=== PATIENT | female | born 1960 | race African-American/Black ===

== ENCOUNTER 2019-08-31 16:15 | Emergency (ER) | payer SELFPAY ==
--- NOTE | 2019-08-31 17:02 | ER Document Report ---
HPI - HPI Patient complains to provider of: HEADACHE Time Seen by Provider: 08/31/19 16:53 Onset: Last week Onset/Duration: Persistent Quality of pain: Achy Pain Level: 2 Context: 58-year-old female presents emergency department with reports that last Sunday () she fell at [facility] in [place]. She reports she fell in the parking lot hitting her head and blacking out and laceration to her left eyebrow. She was treated there with sutures. She reports they did not do a CT scan. She was instructed to follow-up with her primary care provider. She report s she attempted to get an appointment with her primary care provider but she was told to come here for CT scan. Patient has followed up with a chiropractor and they have placed a soft cervical collar on Sunday. Patient reports her head is still hurting she has a severe headache. She was able to drive herself here. She reports her ear hurt. Denies fever vomiting diarrhea. Associated Symptoms: Headache Exacerbated by: Denies Relieved by: Denies Similar symptoms previously: Yes Recently seen / treated by doctor: Yes - NEURO Neurology: REPORTS: Headache - REPRODUCTIVE Reproductive: DENIES: : Past Medical History - General Information source: Patient - Social History Smoking Status: Former Smoker Cigarette use (# per day): No Chew tobacco use (# tins/day): No Frequency of alcohol use: None Drug Abuse: None Lives with: Family Family History: Reviewed & Not Pertinent Patient has homicidal ideation: No - Past Medical History Cardiac Medical History: Reports: Hx Hypertension Pulmonary Medical History: Reports: Hx Pneumonia Endocrine Medical History: Reports: Hx Hypothyroidism Past Surgical History: Reports: Hx Cholecystectomy, Hx Thyroid Surgery - thyroidectomy - Immunizations Immunizations up to date: Yes Hx Diphtheria, Pertussis, Tetanus Vaccination: Yes Vertical Provider Document - CONSTITUTIONAL Agree With Documented VS: Yes Exam Limitations: No Limitations General Appearance: WD/WN, No Apparent Distress - INFECTION CONTROL TRAVEL OUTSIDE OF THE [place] IN LAST 30 DAYS: No - HEENT HEENT: Atraumatic, Normocephalic, PERRLA. negative: Conjuctival Injection - SUTURES INTACT LEFT EYEBROW, SITE BENIGN - NECK Neck: Normal Inspection - She has soft cervical collar on - RESPIRATORY Respiratory: No Respiratory Distress - CARDIOVASCULAR Cardiovascular: Regular Rate - MUSCULOSKELETAL/EXTREMETIES Musculoskeletal/Extremeties: BHARGAV AMADOR - NEURO Level of Consciousness: Awake, Alert, Appropriate Motor/Sensory: No Motor Deficit - DERM Integumentary: Warm, Dry, Laceration - Sutures intact to the left eyebrow site benign no erythema no swelling no warmth Course - Re-evaluation Re-evalutation: 08/31/19 17:15 58-year-old female with head injury after she fell and hit her head out in the parking lot, was knocked out, at [facility]. She reports they placed sutures in her left eyebrow but did not do a CT scan. She is waiting to follow- up with primary care provider was told to come here for CT scan because she continues to have severe headache. Did show me her discharge instructions which note that she should go to her primary care provider to have her sutures removed in 7 to 10 days. This is the eighth day post accident. Her suture site looks benign suture still intact. We will take the sutures out today. 08/31/19 17:[address] on negative [address] She wants to know why her right ear is still hurting. No erythema noted. Patient was instructed to follow-up with her primary care take Tylenol Motrin as indicated for the pain. She verbalized understanding. Head CT 08/31/19 16:59 IMPRESSION: NORMAL BRAIN CT WITHOUT CONTRAST. EVIDENCE OF ACUTE STROKE: NO. - Vital Signs Vital signs: Temp Pulse Resp BP Pulse Ox 97.7 F 88 16 128/72 H 97 08/31/19 16:45 08/31/19 16:20 08/31/19 16:20 08/31/19 16:20 08/31/19 16:20 - Diagnostic Test Radiology reviewed: Image reviewed, Reports reviewed Discharge - Discharge Clinical Impression: Head injury, Headache, Encounter for removal of sutures Condition: Stable Disposition: HOME, SELF-CARE Instructions: Headache ([facility]), Head Injury Precautions ([facility]), Suture Removal Additional Instructions: *You have been evaluated for head injury, suture removal Your CT was negative for an acute injury, stroke Monitor your eyebrow for any signs of infection around the suture site such as redness swelling warmth or discharge *Follow up with a primary care provider within 1 week for recheck *Return to the emergency department for worsening symptoms, concerns, needs Monitor your blood pressure. Your blood pressure was elevated today. This may be because you were anxious, in pain or because you need medication. It is important to follow up with your primary care provider for full evaluation. Forms: Elevated Blood Pressure
--- NOTE | 2019-08-31 17:27 | RADIOLOGY REPORT (SQ) ---
EXAM DESCRIPTION: CT HEAD WITHOUT IMAGES COMPLETED DATE/TIME: 08/31/2019 5:14 pm REASON FOR STUDY: fall, change of LOC, Severe STARKS COMPARISON: None. TECHNIQUE: Axial images acquired through the brain without intravenous contrast. Images reviewed wi th bone, brain and subdural windows. Additional sagittal and coronal reconstructions were generated. Images stored on PACS. All CT scanners at this facility use dose modulation, iterative reconstruction, and/or weight based d osing when appropriate to reduce radiation dose to as low as reasonably achievable (ALARA). [facility]: Dose Right [facility]: CareDose [facility]: Dose Right [facility]: Teradose 4D [facility]: 1010data RADIATION DOSE: CT Rad equipment meets quality standard of care and radiation dose reduction techniq ues were employed. CTDIvol: 53.2 mGy. DLP: 964 mGy-cm. mGy. LIMITATIONS: None. FINDINGS: VENTRICLES: Normal size and contour. CEREBRUM: No masses. No hemorrhage. No midline shift. No evidence for acute infarction. Normal gra y/white matter differentiation. No areas of low density in the white matter. CEREBELLUM: No masses. No hemorrhage. No alteration of density. No evidence for acute infarction. EXTRAAXIAL SPACES: No fluid collections. No masses. ORBITS AND GLOBE: No intra- or extraconal masses. Normal contour of globe without masses. CALVARIUM: No fracture. PARANASAL SINUSES: No fluid or mucosal thickening. SOFT TISSUES: No mass or hematoma. OTHER: No other significant finding. IMPRESSION: NORMAL BRAIN CT WITHOUT CONTRAST. EVIDENCE OF ACUTE STROKE: NO. COMMENT: Quality ID # [id number]: Final reports with documentation of one or more dose reduction techniques (e.g., Automated exposure control, adjustment of the mA and/or kV according to patient size, use of iterative reconstruction technique) TECHNICAL DOCUMENTATION: JOB ID: [id number] 2010 [employer]- All Rights Reserved Reading location - IP/workstation name: [email or web address]
[2019-08-31 17:58] VITALS: BP 130/80
== END 2019-08-31 17:57 | disposition home or self-care (01) ==
LOC: ER 16:15
DX: S09.90XA Unspecified injury of head, initial encounter (principal); S01.112A Laceration without foreign body of left eyelid and periocular area, initial encounter; H92.01 Otalgia, right ear; W18.30XA Fall on same level, unspecified, initial encounter; Y92.481 Parking lot as the place of occurrence of the external cause; I10 Essential (primary) hypertension; Z90.49 Acquired absence of other specified parts of digestive tract
CPT/HCPCS: 70450; 99284